=== PATIENT | male | born 1990 | race Caucasian/White ===

== ENCOUNTER 2018-07-06 00:57 | Emergency (ER) | payer MEDICAID, OTHER ==
[2018-07-06] MEDS: IBUPROFEN 800 MG TAB PO (04:24)
== END 2018-07-06 04:28 | disposition home or self-care (01) ==
LOC: FTE 00:57
DX: H66.91 Otitis media, unspecified, right ear (principal); H60.91 Unspecified otitis externa, right ear; F17.210 Nicotine dependence, cigarettes, uncomplicated
CPT/HCPCS: 99283; Z7502